=== PATIENT | female | born 1940 | race Caucasian/White ===

== ENCOUNTER 2022-06-06 11:44 | Emergency (ER) | payer OTHER ==
[~2022-06-06] VITALS: Ht 170.2 cm; Wt 56.7 kg
[2022-06-06 11:55] VITALS: BP_SYST 123
[2022-06-06] MEDS ORDERED: IPRATROPIUM/ALBUTEROL SULFATE 3 ML AMPUL.NEB (DUONEB) INH ONE (12:30)
[2022-06-06] MEDS ORDERED: ZIT250 PO (12:44)
[2022-06-06] MEDS ORDERED: ALBMDI INH (12:44)
[2022-06-06] MEDS ORDERED: D-ME118S48 PO (12:44)
[2022-06-06] MEDS ORDERED: PRED50TA PO (12:44)
[2022-06-06 12:52] VITALS: BP_SYST 107
== END 2022-06-06 12:52 | disposition home or self-care (01) ==
LOC: SED 11:44
DX: J18.9 Pneumonia, unspecified organism (principal); J45.909 Unspecified asthma, uncomplicated; R05.9 Cough, unspecified; Z88.0 Allergy status to penicillin; Z79.899 Other long term (current) drug therapy; Z20.822 Contact with and (suspected) exposure to COVID-19
CPT/HCPCS: 36415; 71045; 94640; 99284

== ENCOUNTER 2022-10-01 14:04 | Emergency (ER) | payer OTHER ==
[~2022-10-01] VITALS: Ht 170.2 cm; Wt 54.4 kg
[~2022-10-01 14:04] MED LIST: ALBMDI INH; D-ME118S48 PO; PRED50TA PO; ZIT250 PO
[2022-10-01 14:21] VITALS: PULSE 64; RESP 16; TEMP 98.3; O2SAT 96
[2022-10-01 15:08] LABS: BASOPHILS # (AUTO) 0.1 K/uL (0.0-0.2); BASOPHILS % (AUTO) 0.7 % (0.0-2.0); EOSINOPHILS # (AUTO) 0.1 K/uL (0.0-0.4); EOSINOPHILS % (AUTO) 0.4 % (0.0-4.0); HEMATOCRIT 39.2 % (36-48); HEMOGLOBIN 12.7 g/dL (12.0-16.0); LYMPHOCYTES # (AUTO) 2.5 K/uL (1.0-5.5); LYMPHOCYTES % (AUTO) 16.8 % (20.5-51.5); MEAN CORPUSCULAR HEMOGLOBIN 29 pg (27-31); MEAN CORPUSCULAR HGB CONC 32 % (32-36); MEAN CORPUSCULAR VOLUME 90 fL (79.0-98.0); MONOCYTES # (AUTO) 0.7 K/uL (0.0-1.0); MONOCYTES % (AUTO) 4.6 % (1.7-9.3); NEUTROPHILS # (AUTO) 11.4 K/uL (1.8-7.7); NEUTROPHILS % (AUTO) 77.5 % (40.0-70.0); PLATELET COUNT (AUTO) 308 K/uL (130-430); RED BLOOD CELL COUNT(AUTO) 4.38 MIL/uL (4.2-6.2); RED CELL DISTRIBUTION WIDTH 13.6 % (9.0-15.0); WHITE BLOOD COUNT (AUTO) 14.7 K/uL (4.8-10.8)
[2022-10-01 15:20] LABS: ANION GAP 6 (5-15); CALCIUM 8.6 mg/dL (8.4-11.0); CARBON DIOXIDE 30 mmol/L (23-29); CHLORIDE 103 mmol/L (98-107); CREATININE 0.99 mg/dL (0.55-1.30); GLUCOSE 145 mg/dL (74-106); SODIUM SERUM 139 mmol/L (136-145); UREA NITROGEN, BLOOD 16 mg/dL (8-21)
[2022-10-01 15:22] LABS: INR 1.1 (0.8-1.2); PROTHROMBIN TIME 11.2 SECS (9.5-12.5)
[2022-10-01 15:25] LABS: ALANINE AMINOTRANSFERASE 10 U/L (12-78); ALBUMIN 3.7 g/dL (3.4-4.8); ASPARTATE AMINOTRANSFERASE 18 U/L (10-37); TOTAL BILIRUBIN 0.2 mg/dL (0.0-1.0)
[2022-10-01] MEDS ORDERED: IBUP-1969 PO (16:23)
[2022-10-01] MEDS ORDERED: HYDR-3927 PO (16:23)
[2022-10-01 16:24] VITALS: PULSE 64; RESP 16; TEMP 98.3; O2SAT 96
== END 2022-10-01 16:23 | disposition home or self-care (01) ==
LOC: SED 14:04
DX: S40.022A Contusion of left upper arm, initial encounter (principal); Z88.0 Allergy status to penicillin; Z79.899 Other long term (current) drug therapy; W19.XXXA Unspecified fall, initial encounter; Y93.89 Activity, other specified; Y92.89 Other specified places as the place of occurrence of the external cause; Y99.8 Other external cause status
CPT/HCPCS: 36415; 80053; 85025; 85610-TC; 85730-TC; 93971; 99284